=== PATIENT | male | born 1960 | race Caucasian/White ===

== ENCOUNTER 2016-12-19 16:34 | Emergency (ER) | payer SELFPAY ==
[~2016-12-19] VITALS: Ht 185.4 cm; Wt 93.0 kg
[~2016-12-19 16:34] MED LIST: ACET325T PO; ASPI1TAB69 PO; DICL500 PO; IBUP-232 PO
[2016-12-19 16:36] VITALS: BP 120/64; PULSE 81; RESP 16; TEMP 98; O2SAT 98
--- NOTE | 2016-12-19 16:48 | PD ---
Physical Exam Time Seen by Provider: 16:46 Narrative 56yo M c/o sinus congestion x2 months. Worse in the last 2-3 weeks w/worsening more today. Denies fever. Denies cough, ear pain. Reports sore throat. Patient stable. Patient seen in triage. Awaiting bed placement. Data Data Last Documented VS Vital Signs Date Time Temp Pulse Resp B/P Pulse Ox O2 Delivery O2 Flow Rate FiO2 12/19/16 16:36 98.0 81 16 120/64 98 MDM Supervised Visit with DAREN: Stella Nelson Dec 19, 2016 16:48
--- NOTE | 2016-12-19 16:52 | PD ---
HPI . Sinus infection for 2-3 months Chief Complaint: Cold / Flu Symptoms Time Seen by Provider: 16:52 Travel History International Travel<30 days: No Contact w/Intl Traveler<30days: No Traveled to known affect area: No History of Present Illness HPI 56-year-old male here with complaints of having sinus infection intermittently for the past 2-3 months. Patient has been trying to self medicate at home and has not had any improvement. He decided come to the emergency department for further evaluation as he has significant nasal congestion and tells me he needs something to make him better. He admits to facial pressure, head congestion, nasal congestion and slight cough. He denies any fever or chills. He has no other complaints. He tells me he had something similar in the past was given a breathing treatment. PFSH Past Medical History Autoimmune Disease: No Anxiety: No Depression: No Heart Rhythm Problems: No Cancer: No High Cholesterol: No Chemotherapy: No Congestive Heart Failure: No Cerebrovascular Accident: No Diabetes: No Diminished Hearing: No Endocrine: No GERD: Yes Genitourinary: No Hiatal Hernia: No Immune Disorder: No Kidney Stones: No Musculoskeletal: No Neurologic: No Psychiatric: No Reproductive: No Respiratory: No Migraines: Yes Radiation Therapy: No Renal Failure: No Seizures: No Thyroid Disease: No Past Surgical History AICD: No Appendectomy: Yes Arteriovenous Shunt: No Joint Replacement: No Pacemaker: No Social History Alcohol Use: No Tobacco Use: No Substance Use: No Allergies-Medications (Allergen,Severity, Reaction): Coded Allergies: No Known Allergies (Unverified , 12/19/16) Reported Meds & Prescriptions Reported Meds & Active Scripts Active Augmentin (Amoxicillin-Clavulanate) 875-125 mg Tab 875 Mg PO BID not for use in CrCl <30 ml/min. Flonase Nasal [place] (Fluticasone Nasal [place]) 50 Mcg/Act [place] 50 Mcg EACH NARE BID Dicloxacillin (Dicloxacillin Sodium) 500 Mg Cap 500 Mg PO QID Ibuprofen 600 Mg Tab 600 Mg PO Q8HR PRN Acetaminophen 325 Mg Tab 650 Mg PO Q4H PRN Aspirin 81 Mg Tabdr 81 Mg PO DAILY Review of Systems General / Constitutional: No: Fever Eyes: No: Visual changes HENT: Positive: Congestion, Other (facial pain), No: Headaches Cardiovascular: No: Chest Pain or Discomfort Respiratory: No: Shortness of Breath Gastrointestinal: No: Abdominal Pain Genitourinary: No: Dysuria Musculoskeletal: No: Pain Skin: No Rash Neurologic: No: Weakness Psychiatric: No: Depression Endocrine: No: Polydipsia Hematologic/Lymphatic: No: Easy Bruising Physical Exam Narrative GENERAL: AAO x 3, no acute distress, Well-nourished, well-developed patient. SKIN: Warm and dry. No visible rashes or bruising. HEAD: Normocephalic and atraumatic. EYES: No scleral icterus. No injection or drainage. EOM intact, PERRLA ENT: No nasal drainage noted. Mucous membranes pink. Airway patent. Moderate postnasal drip. Frontal and maxillary sinus tenderness. TMs with air bubbles bilaterally. Nasal turbinates boggy NECK: Supple, trachea midline. No JVD. No lymphadenopathy CARDIOVASCULAR: Regular rate and rhythm without murmurs, gallops, or rubs. RESPIRATORY: Breath sounds equal bilaterally. No accessory muscle use. No rhonchi or rales. No wheezing GASTROINTESTINAL: Visual inspection is normal EXTREMITIES: No cyanosis or edema. BACK: Nontender without obvious deformity. No CVA tenderness. PSYCH: AAO x 3, normal affect. Data Data Last Documented VS Vital Signs Date Time Temp Pulse Resp B/P Pulse Ox O2 Delivery O2 Flow Rate FiO2 12/19/16 16:36 98.0 81 16 120/64 98 MDM Medical Decision Making Medical Screen Exam Complete: Yes Emergency Medical Condition: Yes Medical Record Reviewed: Yes Differential Diagnosis sinusitis, allergic rhinitis, less likely PNA Narrative Course 56-year-old male here with complaints of having sinus infection intermittently for the past 2-3 months. Patient has been trying to self medicate at home and has not had any improvement. He decided come to the emergency department for further evaluation as he has significant nasal congestion and tells me he needs something to make him better. He admits to facial pressure, head congestion, nasal congestion and slight cough. He denies any fever or chills. He has no other complaints. He tells me he had something similar in the past was given a breathing treatment. Patient seen and examined. He appears to have acute sinusitis. I do not see any need for breathing treatment. His airway is normal and he does not have any wheezing. His O2 sats are normal. I have discussed antibiotics with him. I will prescribe him a course of Augmentin and Flonase. He can use an [id number] H2 receptor ayush such as Claritin. If symptoms persist past 7-10 days, he'll need to follow-up his primary care provider. Patient verbalized understanding of instructions, questions were answered, and thanked me for their care. I advised them if their condition worsens, please return to the nearest emergency room for further care. Diagnosis Primary Impression: Acute sinusitis Qualified Code: J01.10 - Acute frontal sinusitis, recurrence not specified Patient Instructions: General Instructions Additional Instructions: Please return to emergency department if your symptoms return or worsen. Follow up with your primary care provider. Take medications as prescribed. You can also take Claritin [id number] once daily. Med/Other Pt SpecificInfo: Prescription(s) given Scripts Amoxicillin-Clavulanate (Augmentin)875-125 mg [id number] Mg PO BID #20 TAB not for use in CrCl <30 ml/min. Prov:Daryl Garibay MD 12/19/16 Fluticasone Nasal [place] (Flonase Nasal [place])50 Mcg/Act Spray50 Mcg EACH NARE BID #1 BOTTLE Ref 0 Prov:Daryl Garibay MD 12/19/16 Disposition: 01 DISCHARGE HOME Condition: Stable Stacey Monteiro Dec 19, 2016 16:52
[2016-12-19] MEDS ORDERED: FLUT1SPR5 EACH NARE (16:55)
[2016-12-19] MEDS ORDERED: AUGM875T PO (16:55)
[2016-12-19] MEDS ORDERED: NAPR220T9 PO (17:18)
== END 2016-12-19 17:10 | disposition home or self-care (01) ==
LOC: NEPK 16:34
DX: J01.90 Acute sinusitis, unspecified (principal)
CPT/HCPCS: 99283

== ENCOUNTER 2017-02-12 10:24 | Emergency (ER) | payer SELFPAY ==
[~2017-02-12] VITALS: Ht 185.4 cm; Wt 95.0 kg
[~2017-02-12 10:24] MED LIST changes: +AUGM875T PO; +FLUT1SPR5 EACH NARE; -IBUP-232 PO; +NAPR220T9 PO
[2017-02-12 10:26] VITALS: BP 120/78; PULSE 76; RESP 20; TEMP 98; O2SAT 98
[2017-02-12] MEDS ORDERED: ASPI81CH CHEW (10:38)
[2017-02-12] MEDS ORDERED: ALEV220T14 PO (10:38)
[2017-02-12] MEDS ORDERED: CLINDAMYCIN INJ 900 MG in SODIUM CHLORIDE 0.9% INJ 100 ML IV ONE (10:45)
[2017-02-12] MEDS ORDERED: KETOROLAC TROMETHAMINE 30 MG/ML (IVP) VIAL IVP ONE (10:45)
[2017-02-12] MEDS ORDERED: SODIUM CHLORIDE 0.9% FLUSH 10 ML FLUSH IVF PRN (10:45)
--- NOTE | 2017-02-12 10:50 | PD ---
HPI . Right leg pain Chief Complaint: Injury Time Seen by Provider: 10:34 Travel History International Travel<30 days: No Contact w/Intl Traveler<30days: No Traveled to known affect area: No History of Present Illness HPI Patient presents with a 2 day history of pain and swelling of his right leg. It is getting progressively worse. He states it feels hot. He states that his pain is 7/10. He has not noted any modifying factors. His pain is associated with subjective fevers, chills and diaphoresis. Patient reports previous history of cellulitis in his right lower extremity. He states that he was hospitalized in late July for same for IV antibiotics. At that time he had had an associated laceration of his foot which was followed by the cellulitis of his right lower extremity. He has not had any recent skin injury. In addition to his leg problem, he is complaining with sinus congestion. He states that he has used DayQuil and Flonase with some relief of his symptoms. Furthermore, he has back pain today. It just started today. It is in the center of his back. He does not have any associated weakness or incontinence. The pain is exacerbated by movement. Pain is relieved by being still. PFSH Past Medical History Autoimmune Disease: No Anxiety: No Depression: No Heart Rhythm Problems: No Cancer: No High Cholesterol: No Chemotherapy: No Congestive Heart Failure: No Cerebrovascular Accident: No Diabetes: No Diminished Hearing: No Endocrine: No GERD: Yes Genitourinary: No Hiatal Hernia: No Immune Disorder: No Kidney Stones: No Musculoskeletal: No Neurologic: No Psychiatric: No Reproductive: No Respiratory: No Migraines: Yes Radiation Therapy: No Renal Failure: No Seizures: No Thyroid Disease: No Past Surgical History AICD: No Appendectomy: Yes Arteriovenous Shunt: No Joint Replacement: No Pacemaker: No Social History Alcohol Use: No Tobacco Use: No Substance Use: No Allergies-Medications (Allergen,Severity, Reaction): Coded Allergies: No Known Allergies (Unverified , 02/12/17) Reported Meds & Prescriptions Reported Meds & Active Scripts Active Tramadol (Tramadol HCl) 50 Mg Tab 50 Mg PO Q4H PRN Keflex (Cephalexin) 500 Mg Capsule 500 Mg PO TID 10 Days Bactrim DS (Sulfamethoxazole-Trimethoprim) 800-160 Mg Tab 1 Tab PO BID Reported Aleve Arthritis (Naproxen Sodium) 220 Mg Tab 220 Mg PO BID Aspirin 81 Mg Chew 81 Mg CHEW DAILY Review of Systems Except as stated in HPI: all other systems reviewed are Neg General / Constitutional: Positive: Fever, Chills, Other (diaphoresis) HENT: Positive: Congestion Musculoskeletal: Positive: Pain (back and right leg) Skin: Positive Change in Pigmentation Physical Exam Narrative GENERAL: Awake and alert and in no acute distress. SKIN: Warm and dry. Erythema of the right lower extremity from about the mid bray down to the ankle. It is slightly swollen. It is warm to the touch. HEAD: Atraumatic. Normocephalic. EYES: Pupils equal and round. ENT: Scant mucopurulent nasal drainage. No sinus tenderness. Oropharynx is clear. NECK: Trachea midline. Neck is supple with no cervical lymphadenopathy. CARDIOVASCULAR: Regular rate and rhythm. RESPIRATORY: No accessory muscle use. MUSCULOSKELETAL: No obvious deformities. No edema. Back is tender in the mid back. NEUROLOGICAL: Awake and alert. No obvious cranial nerve deficits. Motor grossly within normal limits. Normal speech. PSYCHIATRIC: Appropriate mood and affect; insight and judgment normal. Data Data Last Documented VS Vital Signs Date Time Temp Pulse Resp B/P Pulse Ox O2 Delivery O2 Flow Rate FiO2 02/12/17 10:26 98.0 76 20 120/78 98 Room Air Orders Basic Metabolic Panel (Bmp) (02/12/17 10:38) Complete Blood Count With Diff (02/12/17 10:38) Blood Culture (02/12/17 10:38) Iv Access Insert/Monitor (02/12/17 10:38) Ketorolac Inj (Toradol Inj) (02/12/17 10:45) Sodium Chloride 0.9% Flush (Ns Flush) (02/12/17 10:45) Clindamycin Inj (Cleocin Inj) (02/12/17 10:45) C-Reactive Protein (Crp) (02/12/17 10:38) Westergren Sedimentation Rate (02/12/17 10:38) Labs Laboratory Tests Test 02/12/17 10:47 White Blood Count 7.8 TH/MM3 Red Blood Count 4.38 MIL/MM3 Hemoglobin 12.7 GM/DL Hematocrit 36.9 % Mean Corpuscular Volume 84.2 FL Mean Corpuscular Hemoglobin 28.9 PG Mean Corpuscular Hemoglobin 34.3 % Concent Red Cell Distribution Width 13.9 % Platelet Count 112 TH/MM3 Mean Platelet Volume 9.6 FL Neutrophils (%) (Auto) 51.3 % Lymphocytes (%) (Auto) 31.9 % Monocytes (%) (Auto) 13.6 % Eosinophils (%) (Auto) 2.7 % Basophils (%) (Auto) 0.5 % Neutrophils # (Auto) 4.0 TH/MM3 Lymphocytes # (Auto) 2.5 TH/MM3 Monocytes # (Auto) 1.1 TH/MM3 Eosinophils # (Auto) 0.2 TH/MM3 Basophils # (Auto) 0.0 TH/MM3 CBC Comment DIFF FINAL Differential Comment Erythrocyte Sedimentation Rate 17 mm/hr Sodium Level 138 MEQ/L Potassium Level 4.1 MEQ/L Chloride Level 105 MEQ/L Carbon Dioxide Level 28.9 MEQ/L Anion Gap 4 MEQ/L Blood Urea Nitrogen 17 MG/DL Creatinine 0.89 MG/DL Estimat Glomerular Filtration 89 ML/MIN Rate Random Glucose 94 MG/DL Calcium Level 8.5 MG/DL C-Reactive Protein 5.21 MG/DL MDM Medical Decision Making Medical Screen Exam Complete: Yes Emergency Medical Condition: Yes Differential Diagnosis My differential diagnosis includes but is not limited to localized wound infection, cellulitis, abscess Narrative Course Patient presents for treatment of cellulitis of the right lower leg. Diagnosis Primary Impression: Cellulitis Qualified Code: L03.115 - Cellulitis of right lower extremity Additional Impressions: Low back pain Qualified Code: M54.5 - Acute midline low back pain without sciatica Nasal congestion Referrals: [facility] 3 days Patient Instructions: Acute Low Back Pain (DC), Cellulitis (DC), General Instructions Additional Instructions: I recommend the use of a Neti Pot for your sinuses. You may use a nasal spray such as Afrin for up to 3 days as needed for nasal congestion. You may take an vqia-uol-taxrhrb antihistamine such as Zyrtec, Carey or Claritin as needed for runny secretions. You may take pseudoephedrine as needed for congestion. You will need to sign for this at the pharmacy. You may take plain Mucinex, 1200 mg twice a day as needed for thick secretions. Continue steroid nasal spray. Med/Other Pt SpecificInfo: Prescription(s) given Scripts Tramadol 50 Mg Tab50 Mg PO Q4H PRN (PAIN) #12 TAB Ref 0 Prov:Annemarie Linton MD 02/12/17 Cephalexin (Keflex)500 Mg [id number] Mg PO TID 10 Days Ref 0 Prov:Annemarie Linton MD 02/12/17 Sulfamethoxazole-Trimethoprim (Bactrim DS)800-160 Mg Tab1 Tab PO BID #20 TAB Ref 0 Prov:Annemarie Linton MD 02/12/17 Disposition: 01 DISCHARGE HOME Condition: Stable Annemarie Linton MD Feb 12, 2017 10:50
[2017-02-12 10:58] LABS: BASOPHIL % 0.5 % (0.0-2.0); EOSINOPHIL # 0.2 TH/MM3 (0-0.4); EOSINOPHIL % 2.7 % (0.0-4.0); HEMATOCRIT 36.9 % (39.0-51.0); HEMO FLAGS DIFF FINAL; LYMPH % 31.9 % (9.0-44.0); LYMPHOCYTE # 2.5 TH/MM3 (1.0-4.8); MEAN CELL VOLUME 84.2 FL (80.0-100.0); MEAN CORPUSCULAR HEMOGLOBIN 28.9 PG (27.0-34.0); MEAN CORPUSCULAR HGB CONC 34.3 % (32.0-36.0); MONO % 13.6 % (0.0-8.0); NEUT % 51.3 % (16.0-70.0); PLATELET COUNT 112 TH/MM3 (150-450); RED BLOOD COUNT 4.38 MIL/MM3 (4.50-5.90); RED CELL DISTRIBUTION WIDTH 13.9 % (11.6-17.2); WHITE BLOOD COUNT 7.8 TH/MM3 (4.0-11.0)
[2017-02-12 11:15] LABS: BICARBONATE 28.9 MEQ/L (21.0-32.0); POTASSIUM 4.1 MEQ/L (3.5-5.1)
[2017-02-12] MEDS ORDERED: TRAM50TA PO (11:26)
[2017-02-12] MEDS ORDERED: CEPH-460 PO (11:26)
[2017-02-12] MEDS ORDERED: BACT800T5 PO (11:26)
== END 2017-02-12 12:05 | disposition home or self-care (01) ==
LOC: NEPD 10:24
DX: L03.115 Cellulitis of right lower limb (principal); M54.5 Low back pain; R09.81 Nasal congestion; R50.9 Fever, unspecified; M54.9 Dorsalgia, unspecified; M79.606 Pain in leg, unspecified; K21.9 Gastro-esophageal reflux disease without esophagitis; Z79.899 Other long term (current) drug therapy; Z79.82 Long term (current) use of aspirin
CPT/HCPCS: 80048; 85025; 85652; 86140; 87040; 96365; 96375; 99284; J1885

== ENCOUNTER 2017-06-02 18:17 | Emergency (ER) | payer SELFPAY ==
[~2017-06-02] VITALS: Ht 185.4 cm; Wt 88.0 kg
[~2017-06-02 18:17] MED LIST changes: -ACET325T PO; +ALEV220T14 PO; -ASPI1TAB69 PO; +ASPI81CH CHEW; -AUGM875T PO; +BACT800T5 PO; +CEPH-460 PO; -DICL500 PO; -FLUT1SPR5 EACH NARE; -NAPR220T9 PO; +TRAM50TA PO
[2017-06-02 18:19] VITALS: BP 127/78; PULSE 91; RESP 18; TEMP 98.4; O2SAT 99
[2017-06-02] MEDS ORDERED: SODIUM CHLOR 0.9% 1000 ML INJ 1,000 ML IV SCH (18:52)
[2017-06-02] MEDS ORDERED: ALUMINUM/MAGNESIUM/SIMETH 30 ML CUP PO ONE (19:00)
[2017-06-02] MEDS ORDERED: MORPHINE SULFATE 4 MG/ML INJ IV PUSH ONE (19:00)
[2017-06-02] MEDS ORDERED: LIDOCAINE VISCOUS 2% SOLN 15 ML UDC PO ONE (19:00)
[2017-06-02] MEDS ORDERED: SODIUM CHLORIDE 0.9% FLUSH 10 ML FLUSH IV FLUSH PRN (19:00)
[2017-06-02] MEDS ORDERED: ONDANSETRON HCL 4 MG/2 ML VIAL IVP ONE (19:00)
[2017-06-02 19:23] LABS: AUTOMATED NEUTROPHIL # 3.4 TH/MM3 (1.8-7.7); BASOPHIL % 0.6 % (0.0-2.0); EOSINOPHIL # 0.2 TH/MM3 (0-0.4); EOSINOPHIL % 2.9 % (0.0-4.0); HEMATOCRIT 39.8 % (39.0-51.0); HEMO FLAGS DIFF FINAL; LYMPH % 37.9 % (9.0-44.0); LYMPHOCYTE # 2.7 TH/MM3 (1.0-4.8); MEAN CELL VOLUME 86.2 FL (80.0-100.0); MEAN CORPUSCULAR HEMOGLOBIN 29.6 PG (27.0-34.0); MEAN CORPUSCULAR HGB CONC 34.3 % (32.0-36.0); MONO % 10.8 % (0.0-8.0); NEUT % 47.8 % (16.0-70.0); PLATELET COUNT 118 TH/MM3 (150-450); RED BLOOD COUNT 4.62 MIL/MM3 (4.50-5.90); RED CELL DISTRIBUTION WIDTH 13.5 % (11.6-17.2); WHITE BLOOD COUNT 7.2 TH/MM3 (4.0-11.0)
--- NOTE | 2017-06-02 19:28 | RADRPT ---
EXAM DATE/TIME: 06/02/2017 19:06 [place] COMPARISON: No previous studies available for comparison. INDICATIONS : Right flank pain. ORAL CONTRAST: No oral contrast ingested. RADIATION DOSE: 10.91 CTDIvol (mGy) MEDICAL HISTORY : Renal calculi. SURGICAL HISTORY : Appendectomy. ENCOUNTER: Initial ACUITY: 1 day PAIN SCALE: 8/10 LOCATION: Right flank TECHNIQUE: Volumetric scanning of the abdomen and pelvis was performed. Using automated exposure control and ad justment of the mA and/or kV according to patient size, radiation dose was kept as low as reasonably achievable to obtain optimal diagnostic quality images. DICOM format image data is available electro nically for review and comparison. FINDINGS: There is an approximately 4 cm segment of mural thickening of colon in the right upper quadrant at th e hepatic flexure with some surrounding fat stranding. I do not identify a diverticulum. There is no obstruction. No free fluid or free air. No renal or ureteral calculi are identified. The low-attenuation lesions in both kidneys most charact eristic of cysts. No hydronephrosis. No bladder calculi. No acute findings in the liver, spleen, adrenals or pancreas. Previous cholecystectomy. 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 No acute bony abnormality. CONCLUSION: 1. Focal mural thickening of colon at hepatic flexure with pericolonic fat stranding. Differential di agnosis includes focal colitis or diverticulitis although a diverticulum not clearly identified. Davina ot exclude a colonic mass. Recommend close clinical and possible colonoscopic followup. Brandon Arora MD on June 02, 2017 at 19:21 Board Certified Radiologist. This report was verified electronically.
[2017-06-02 19:29] LABS: BLOOD, URINE NEG (NEG); COMMENT (UR) CULT NOT INDICATED; CULTURE IF INDICATED CULT NOT INDICATED; GLUCOSE,URINE NEG (NEG); HYALINE CAST, URINE 1 /lpf (RARE); KETONE, URINE NEG (NEG); MUCUS URINE FEW /lpf (OCC); NITRITE,URINE NEG (NEG); PH, URINE 5.5 (5.0-8.5); URINE COLOR YELLOW (YELLW/STRAW)
--- NOTE | 2017-06-02 19:36 | PD ---
HPI Chief Complaint: Abdominal Pain Time Seen by Provider: 18:44 Travel History International Travel<30 days: No Contact w/Intl Traveler<30days: No Traveled to known affect area: No History of Present Illness HPI 56 M c/o R flank pain and RLQ pain for about one week, getting much worse today. + Diarrhea daily, non-bloody. No nausea or vomiting. Abd pain is cramping in quality. + Generalized fatigue moderately severe, constant. He has been taking New[facility] from [facility]. Denies fever. PFSH Past Medical History Autoimmune Disease: No Anxiety: No Depression: No Heart Rhythm Problems: No Cancer: No High Cholesterol: No Chemotherapy: No Congestive Heart Failure: No Cerebrovascular Accident: No Diabetes: No Diminished Hearing: No Endocrine: No Gastrointestinal Disorders: Yes GERD: Yes Genitourinary: Yes (kidney stone,lithotripsy) Hiatal Hernia: No Immune Disorder: No Kidney Stones: No Musculoskeletal: No Neurologic: No Psychiatric: No Reproductive: No Respiratory: No Migraines: Yes Radiation Therapy: No Renal Failure: No Seizures: No Thyroid Disease: No Past Surgical History AICD: No Appendectomy: Yes Arteriovenous Shunt: No Joint Replacement: No Pacemaker: No Social History Alcohol Use: No Tobacco Use: No Substance Use: No Allergies-Medications (Allergen,Severity, Reaction): Coded Allergies: No Known Allergies (Unverified , 06/02/17) Reported Meds & Prescriptions Reported Meds & Active Scripts Active Flagyl (Metronidazole) 500 Mg Tab 500 Mg PO TID 7 Days Cipro (Ciprofloxacin HCl) 500 Mg Tab 500 Mg PO BID 7 Days Tramadol (Tramadol HCl) 50 Mg Tab 50 Mg PO Q4H PRN Reported Aleve Arthritis (Naproxen Sodium) 220 Mg Tab 220 Mg PO BID Review of Systems Except as stated in HPI: all other systems reviewed are Neg Physical Exam Narrative GENERAL: 56 yo M, WNWD, mild distress SKIN: Warm and dry. HEAD: Atraumatic. Normocephalic. EYES: Pupils equal and round. No scleral icterus. No injection or drainage. ENT: No nasal bleeding or discharge. Mucous membranes pink and moist. NECK: Trachea midline. No JVD. CARDIOVASCULAR: Regular rate and rhythm. RESPIRATORY: No accessory muscle use. Clear to auscultation. Breath sounds equal bilaterally. GASTROINTESTINAL: Soft. Minimal TTP R abdomen and R flank. MUSCULOSKELETAL: Extremities without clubbing, cyanosis, or edema. No obvious deformities. NEUROLOGICAL: Awake and alert. No obvious cranial nerve deficits. Motor grossly within normal limits. Five out of 5 muscle strength in the arms and legs. Normal speech. PSYCHIATRIC: Appropriate mood and affect; insight and judgment normal. Data Data Last Documented VS Vital Signs Date Time Temp Pulse Resp B/P (MAP) Pulse Ox O2 Delivery O2 Flow Rate FiO2 06/02/17 20:45 116/67 (83) 06/02/17 18:19 98.4 91 18 99 Orders Orders Complete Blood Count With Diff (06/02/17 18:52) Comprehensive Metabolic Panel (06/02/17 18:52) Urinalysis - C+S If Indicated (06/02/17 18:52) Ct Abd/Pel W/O Iv Contrast (06/02/17 18:52) Iv Access Insert/Monitor (06/02/17 18:52) Ecg Monitoring (06/02/17 18:52) Oximetry (06/02/17 18:52) Ondansetron Inj (Zofran Inj) (06/02/17 19:00) Sodium Chlor 0.9% 1000 Ml Inj (Ns 1000 M (06/02/17 18:52) Sodium Chloride 0.9% Flush (Ns Flush) (06/02/17 19:00) Morphine Inj (Morphine Inj) (06/02/17 19:00) Al-Mag Hy-Si 40-40-4 Mg/Ml Liq (Mag-Al P (06/02/17 19:00) Lidocaine 2% Viscous (Xylocaine 2% Visco (06/02/17 19:00) Ciprofloxacin (Cipro) (06/02/17 20:30) Metronidazole (Flagyl) (06/02/17 20:30) Mandatory Outpatient Referral (06/02/17 20:30) Labs Laboratory Tests Test 06/02/17 19:08 White Blood Count 7.2 TH/MM3 Red Blood Count 4.62 MIL/MM3 Hemoglobin 13.7 GM/DL Hematocrit 39.8 % Mean Corpuscular Volume 86.2 FL Mean Corpuscular Hemoglobin 29.6 PG Mean Corpuscular Hemoglobin Concent 34.3 % Red Cell Distribution Width 13.5 % Platelet Count 118 TH/MM3 Mean Platelet Volume 10.4 FL Neutrophils (%) (Auto) 47.8 % Lymphocytes (%) (Auto) 37.9 % Monocytes (%) (Auto) 10.8 % Eosinophils (%) (Auto) 2.9 % Basophils (%) (Auto) 0.6 % Neutrophils # (Auto) 3.4 TH/MM3 Lymphocytes # (Auto) 2.7 TH/MM3 Monocytes # (Auto) 0.8 TH/MM3 Eosinophils # (Auto) 0.2 TH/MM3 Basophils # (Auto) 0.0 TH/MM3 CBC Comment DIFF FINAL Differential Comment Urine Color YELLOW Urine Turbidity CLEAR Urine pH 5.5 Urine Specific [place] 1.018 Urine Protein NEG mg/dL Urine Glucose (UA) NEG mg/dL Urine Ketones NEG mg/dL Urine Occult Blood NEG Urine Nitrite NEG Urine Bilirubin NEG Urine Urobilinogen LESS THAN 2.0 MG/DL Urine Leukocyte Esterase NEG Urine WBC LESS THAN 1 /hpf Urine Hyaline Casts 1 /lpf Urine Mucus FEW /lpf Microscopic Urinalysis Comment CULT NOT INDICATED Blood Urea Nitrogen 18 MG/DL Creatinine 1.15 MG/DL Random Glucose 99 MG/DL Total Protein 8.0 GM/DL Albumin 4.1 GM/DL Calcium Level 8.9 MG/DL Alkaline Phosphatase 82 U/L Aspartate Amino Transf (AST/SGOT) 29 U/L Alanine Aminotransferase (ALT/SGPT) 33 U/L Total Bilirubin 0.6 MG/DL Sodium Level 138 MEQ/L Potassium Level 4.1 MEQ/L Chloride Level 103 MEQ/L Carbon Dioxide Level 28.6 MEQ/L Anion Gap 6 MEQ/L Estimat Glomerular Filtration Rate 66 ML/MIN MDM Medical Decision Making Medical Screen Exam Complete: Yes Emergency Medical Condition: Yes Differential Diagnosis Constipation, Gastritis, Acute Cholecystitis, Biliary Colic, Pancreatitis, ROMERO , Hepatitis, Bowel Obstruction, Cystitis, Mesenteric Ischemia, AAA, Appendicitis , Renal Stone/Hydronephrosis, GERD, perforated viscous Narrative Course CBC & BMP Diagram 06/02/17 19:08 Total Protein 8.0, Albumin 4.1, Calcium Level 8.9, Alkaline Phosphatase 82, Aspartate Amino Transf (AST/SGOT) 29, Alanine Aminotransferase (ALT/SGPT) 33, Total Bilirubin 0.6 UA: No UTI Last 24 hours Impressions Abdomen/Pelvis CT 06/02/17 1021 Signed Impressions: Service Date/Time: Friday, June 02, 2017 19:06 - CONCLUSION: 1. Focal mural thickening of colon at hepatic flexure with pericolonic fat stranding. Differential diagnosis includes focal colitis or diverticulitis although a diverticulum not clearly identified. Cannot exclude a colonic mass. Recommend close clinical and possible colonoscopic followup. Brandon Arora MD The patient is resting comfortably and feels better, is alert and in no distress. The patients results and examination findings were discussed. The repeat examination is unremarkable and benign. The history, exam, diagnostic testing, and current condition do not suggest any significant pathology to warrant further testing, continued ED treatment, admission, or surgical evaluation at this point. The vital signs have been stable. The patient does not have uncontrollable pain, intractable vomiting, or other significant symptoms. The patient's condition is stable and appropriate for discharge. The patient will pursue further outpatient evaluation with a primary care physician or other designated or consulting physician as indicated in the discharge instructions. The patient expressed understanding and was agreeable with this plan. Mandatory referral placed for Dr Jewell. Diagnosis Primary Impression: Colitis Additional Impression: Colonic mass Referrals: Charlene Jewell MD 3 days Primary Care Physician 2 days Additional Instructions: You have a choice when it comes to health care, and we are glad that you chose [facility]. Hopefully, we have met your expectations on today's visit. You are welcome to return to [facility] at any time, as we are committed to meeting the health care needs of our community. PLEASE CALL DR JEWELL TO SCHEDULE A FOLLOW UP APPOINTMENT FOR COLONOSCOPY. THERE IS CONCERN FOR A MASS IN THE COLON. A MANDATORY REFERRAL HAS BEEN PLACED FOR DR JEWELL. Med/Other Pt SpecificInfo: Prescription(s) given Scripts Metronidazole (Flagyl) 500 Mg Tab 500 MG PO TID for Infection for 7 Days, TAB 0 Refills Prov: Ryan Fofana MD 06/02/17 Ciprofloxacin (Cipro) 500 Mg Tab 500 MG PO BID for Infection for 7 Days, #14 TAB 0 Refills Prov: Ryan Fofana MD 06/02/17 Tramadol (Tramadol) 50 Mg Tab 50 MG PO Q4H Y for PAIN, #20 TAB 0 Refills Prov: Ryan Fofana MD 06/02/17 Disposition: 01 DISCHARGE HOME Condition: Stable Ryan Fofana MD Jun 02, 2017 19:36
[2017-06-02 19:49] LABS: ALT (GPT) 33 U/L (12-78)
[2017-06-02 19:52] LABS: ALKALINE PHOSPHATASE 82 U/L (45-117); ANION GAP 6 MEQ/L (5-15); AST (GOT) 29 U/L (15-37); BICARBONATE 28.6 MEQ/L (21.0-32.0); BLOOD UREA NITROGEN 18 MG/DL (7-18); CHLORIDE 103 MEQ/L (98-107); GLOMERULAR FILTRATION RATE 66 ML/MIN (>89); POTASSIUM 4.1 MEQ/L (3.5-5.1); SODIUM (NA) 138 MEQ/L (136-145); TOTAL BILIRUBIN ADULT 0.6 MG/DL (0.2-1.0)
[2017-06-02] MEDS ORDERED: CIPR-9 PO (20:18)
[2017-06-02] MEDS ORDERED: METR-1 PO (20:18)
[2017-06-02] MEDS ORDERED: TRAM50TA PO (20:18)
[2017-06-02] MEDS ORDERED: metroNIDAZOLE 500 MG TAB PO ONE (20:30)
[2017-06-02] MEDS ORDERED: CIPROFLOXACIN 500 MG TAB PO ONE (20:30)
[2017-06-02 20:45] VITALS: BP 116/67
== END 2017-06-02 20:58 | disposition home or self-care (01) ==
LOC: NEPD 18:17
DX: K52.9 Noninfective gastroenteritis and colitis, unspecified (principal); K63.9 Disease of intestine, unspecified; K21.9 Gastro-esophageal reflux disease without esophagitis; Z87.442 Personal history of urinary calculi; Z79.899 Other long term (current) drug therapy
CPT/HCPCS: 74176; 80053; 81001; 85025; 96361; 96374; 96375; 99285; J2270; J2405; J7030